=== PATIENT | female | born 1985 | race Caucasian/White ===

== ENCOUNTER 2020-05-05 05:10 | Inpatient (IN) | payer OTHER, SELFPAY ==
[2020-05-03 11:33] LABS: BASOPHILS % (AUTO) 0.6 % (0.0-2.0); EOSINOPHILS # (AUTO) 0.1 K/uL (0.0-0.4); EOSINOPHILS % (AUTO) 1.2 % (0.0-4.0); HEMATOCRIT 33.8 % (36-48); HEMOGLOBIN 11.6 g/dL (12.0-16.0); LYMPHOCYTES # (AUTO) 1.3 K/uL (1.0-5.5); LYMPHOCYTES % (AUTO) 16.5 % (20.5-51.5); MEAN CORPUSCULAR HEMOGLOBIN 31 pg (27-31); MEAN CORPUSCULAR HGB CONC 34 % (32-36); MEAN CORPUSCULAR VOLUME 91 fL (79.0-98.0); MONOCYTES # (AUTO) 0.6 K/uL (0.0-1.0); MONOCYTES % (AUTO) 7.8 % (1.7-9.3); NEUTROPHILS # (AUTO) 5.9 K/uL (1.8-7.7); NEUTROPHILS % (AUTO) 73.9 % (40.0-70.0); PLATELET COUNT (AUTO) 228 K/uL (130-430); RED BLOOD CELL COUNT(AUTO) 3.73 MIL/uL (4.2-6.2); RED CELL DISTRIBUTION WIDTH 14.6 % (9.0-15.0)
[2020-05-03 11:35] LABS: BILIRUBIN,URINE NEGATIVE (NEGATIVE); BLOOD, URINE NEGATIVE (NEGATIVE); CLARITY/URINE SL CLOUDY (CLEAR); COLOR,URINE YELLOW (YELLOW); GLUCOSE,URINE NEGATIVE (NEGATIVE); KETONES,URINE NEGATIVE (NEGATIVE); LEUKOCYTE ESTERASE ,URINE 1+ (NEGATIVE); NITRITE, URINE NEGATIVE (NEGATIVE); PROTEIN URINE NEGATIVE (NEGATIVE); UROBILINOGEN,URINE 0.2 (0.2-1.0)
[2020-05-03 11:54] LABS: BACTERIA,URINE FEW /HPF (None Seen); RBC,URINE 0-3 /HPF (0-3)
[~2020-05-05] VITALS: Ht 157.5 cm; Wt 77.1 kg
[2020-05-05 05:27] VITALS: BP_SYST 115
[2020-05-05] MEDS ORDERED: LR 1,000 ML IV SCH ×2 (05:30→09:45)
[2020-05-05] MEDS ORDERED: CEFAZOLIN 2 GM IVPB PREMIX 50 ML IV ONE (05:30)
[2020-05-05] MEDS ORDERED: CLINDAMYCIN 900 mg/50mL D5W 50 ML IV ONE (07:15)
[2020-05-05] MEDS ORDERED: NALOXONE HCL 0.4 MG/ML AMP (NARCAN) IVP PRN ×3 (08:45→09:45)
[2020-05-05] MEDS ORDERED: DIPHENHYDRAMINE INJ 50 MG/ML VIAL IVP PRN (08:45)
[2020-05-05] MEDS ORDERED: KETOROLAC TROMETHAMINE 60 MG/2 ML VIAL IM PRN (08:45)
[2020-05-05] MEDS ORDERED: ONDANSETRON HCL 4 MG/2 ML VIAL IVP PRN (08:45)
[2020-05-05 09:05] VITALS: BP_SYST 122
[2020-05-05] MEDS ORDERED: DIPH-TET-PERTUS Vaccine 0.5 ML VIAL (ADACEL) I.M. PRN (09:45)
[2020-05-05] MEDS ORDERED: TEMAZEPAM 15 MG CAPSULE PO PRN (09:45)
[2020-05-05] MEDS ORDERED: MEASLES,MUMPS&RUBELLA VACC/PF 12500 UNIT/0.5 ML VIAL SUBQ PRN (09:45)
[2020-05-05] MEDS ORDERED: SENNOSIDES/DOCUSATE SODIUM 1 TAB TABLET(SENOKOT-S) PO PRN (09:45)
[2020-05-05] MEDS ORDERED: OXYTOCIN/0.9 % SODIUM CHLORIDE 1,000 ML IV SCH (09:45)
[2020-05-05] MEDS ORDERED: ANUSOL 1 EA SUPP.RECT (PREPARATION H) RC PRN (09:45)
[2020-05-05] MEDS ORDERED: HYDROcodone/ACETAMIN 5-325 MG TAB (NORCO/ VICODIN) PO PRN (09:45)
[2020-05-05] MEDS ORDERED: LANOLIN 7 GM OINT. TP PRN (09:45)
[2020-05-05] MEDS ORDERED: RHO(D) IMMUNE GLOBULIN/MALTOSE 1500 UNITS/1.3 ML (WINHRO) IM PRN (09:45)
[2020-05-05] MEDS ORDERED: OXYTOCIN/0.9 % SODIUM CHLORIDE 1,000 ML IV ONE (10:10)
[2020-05-05] MEDS ORDERED: METHYLERGONOVINE MALEATE 0.2 MG/ML AMP IM ONE (10:45)
[2020-05-05] MEDS ORDERED: METHYLERGONOVINE MALEATE 0.2 MG/ML AMP ONE ×2 (10:56→12:23)
[2020-05-05 12:19] LABS: BASOPHILS # (AUTO) 0.1 K/uL (0.0-0.2); BASOPHILS % (AUTO) 0.8 % (0.0-2.0); EOSINOPHILS % (AUTO) 0.2 % (0.0-4.0); HEMOGLOBIN 9.2 g/dL (12.0-16.0); LYMPHOCYTES # (AUTO) 1.4 K/uL (1.0-5.5); LYMPHOCYTES % (AUTO) 9.2 % (20.5-51.5); MEAN CORPUSCULAR HEMOGLOBIN 31 pg (27-31); MEAN CORPUSCULAR HGB CONC 34 % (32-36); MEAN CORPUSCULAR VOLUME 91 fL (79.0-98.0); MONOCYTES # (AUTO) 0.9 K/uL (0.0-1.0); MONOCYTES % (AUTO) 5.7 % (1.7-9.3); NEUTROPHILS # (AUTO) 12.8 K/uL (1.8-7.7); NEUTROPHILS % (AUTO) 84.1 % (40.0-70.0); PLATELET COUNT (AUTO) 246 K/uL (130-430); RED BLOOD CELL COUNT(AUTO) 2.97 MIL/uL (4.2-6.2); RED CELL DISTRIBUTION WIDTH 14.7 % (9.0-15.0); WHITE BLOOD COUNT (AUTO) 15.2 K/uL (4.8-10.8)
[2020-05-05] MEDS ORDERED: OXYTOCIN 10 UNIT/ML VIAL ONE (12:23)
[2020-05-05] MEDS ORDERED: MISOPROSTOL 25 MCG (0.025 MG) *QUARTER TABLET VG ONE (12:48)
[2020-05-05] MEDS ORDERED: HYDROmorphone 2 MG/ML VIAL IVP STA (12:54)
[2020-05-05] MEDS ORDERED: MISOPROSTOL 100 MCG TABLET (CYTOTEC) RC SCH (13:00)
[2020-05-05] MEDS ORDERED: NACL 0.9% IV ONE (13:30)
[2020-05-05] MEDS ORDERED: METHYLERGONOVINE MALEATE IV ONE (13:30)
[2020-05-05] MEDS ORDERED: OXYTOCIN IV ONE (13:30)
[2020-05-05] MEDS ORDERED: METHYLERGONOVINE MALEATE 0.2 MG TABLET PO SCH (17:00)
[2020-05-05] MEDS: NACL 0.9% IV SCH ×2 (17:06→23:34)
[2020-05-05] MEDS: METHYLERGONOVINE MALEATE IV SCH ×2 (17:06→23:34)
[2020-05-05] MEDS: OXYTOCIN IV SCH ×2 (17:06→23:34)
[2020-05-05] MEDS ORDERED: KETOROLAC TROMETHAMINE 30 MG VIAL IVP SCH (18:00)
[2020-05-05] MEDS: CEFAZOLIN 1 GM IVPB PREMIX 50 ML IV SCH ×2 (18:07→23:38)
[2020-05-05 19:03] LABS: BASOPHILS % (AUTO) 0.1 % (0.0-2.0); LYMPHOCYTES # (AUTO) 1.4 K/uL (1.0-5.5); LYMPHOCYTES % (AUTO) 6.6 % (20.5-51.5); MEAN CORPUSCULAR HEMOGLOBIN 30 pg (27-31); MEAN CORPUSCULAR HGB CONC 32 % (32-36); MEAN CORPUSCULAR VOLUME 93 fL (79.0-98.0); MONOCYTES # (AUTO) 0.8 K/uL (0.0-1.0); MONOCYTES % (AUTO) 3.6 % (1.7-9.3); NEUTROPHILS # (AUTO) 19.3 K/uL (1.8-7.7); NEUTROPHILS % (AUTO) 89.7 % (40.0-70.0); PLATELET COUNT (AUTO) 237 K/uL (130-430); RED CELL DISTRIBUTION WIDTH 14.5 % (9.0-15.0); WHITE BLOOD COUNT (AUTO) 21.5 K/uL (4.8-10.8)
[2020-05-05 19:17] LABS: HEMATOCRIT 21.4 % (36-48); HEMOGLOBIN 6.9 g/dL (12.0-16.0)
[2020-05-05] MEDS ORDERED: HYDROmorphone 2 MG/ML VIAL IVP PRN (19:45)
[2020-05-05] MEDS ORDERED: HYDROmorphone 1 MG INJ. 1 MG/ML AMPUL IVP PRN (19:45)
[2020-05-05] MEDS ORDERED: COMMUNICATION ORDER XX ONE ×2 (19:45)
[2020-05-05] MEDS ORDERED: SOD FERRIC GLUC COMPLEX/SUC 125 MG in NS 100 ML IV SCH (20:00)
[2020-05-05] MEDS ORDERED: EPOETIN ALFA 4,000 UNITS/ML VIAL SUBCUT ONE (20:00)
[2020-05-05] MEDS: SIMETHICONE 80 MG TAB.CHEW PO PRN (23:34)
[2020-05-06] MEDS: SIMETHICONE 80 MG TAB.CHEW PO PRN ×3 (05:49→18:52)
[2020-05-06] MEDS: CEFAZOLIN 1 GM IVPB PREMIX 50 ML IV SCH (05:49)
[2020-05-06] MEDS: OXYCODONE/ACETAMINOPHEN 5-325 TABLET PO PRN (06:07)
[2020-05-06] MEDS ORDERED: METHYLERGONOVINE MALEATE IV SCH (06:15)
[2020-05-06] MEDS ORDERED: NACL 0.9% IV SCH (06:15)
[2020-05-06] MEDS ORDERED: OXYTOCIN IV SCH (06:15)
[2020-05-06 06:39] LABS: BASOPHILS # (AUTO) 0.1 K/uL (0.0-0.2); BASOPHILS % (AUTO) 0.8 % (0.0-2.0); EOSINOPHILS # (AUTO) 0.4 K/uL (0.0-0.4); EOSINOPHILS % (AUTO) 3.2 % (0.0-4.0); LYMPHOCYTES # (AUTO) 1.7 K/uL (1.0-5.5); LYMPHOCYTES % (AUTO) 12.4 % (20.5-51.5); MEAN CORPUSCULAR HEMOGLOBIN 31 pg (27-31); MEAN CORPUSCULAR HGB CONC 36 % (32-36); MEAN CORPUSCULAR VOLUME 88 fL (79.0-98.0); MONOCYTES % (AUTO) 7.7 % (1.7-9.3); NEUTROPHILS # (AUTO) 10.3 K/uL (1.8-7.7); NEUTROPHILS % (AUTO) 75.9 % (40.0-70.0); PLATELET COUNT (AUTO) 221 K/uL (130-430); RED BLOOD CELL COUNT(AUTO) 2.42 MIL/uL (4.2-6.2); RED CELL DISTRIBUTION WIDTH 14.9 % (9.0-15.0)
[2020-05-06 06:56] LABS: WHITE BLOOD COUNT (AUTO) 13.6 K/uL (4.8-10.8)
[2020-05-06 07:01] LABS: HEMATOCRIT 21.3 % (36-48); HEMOGLOBIN 7.6 g/dL (12.0-16.0)
[2020-05-06] MEDS: OXYCODONE/ACETAMINOPHEN *10*mg/325 mg TABLET PO PRN ×4 (09:22→21:29)
[2020-05-06] MEDS ORDERED: SOD FERRIC GLUC COMPLEX/SUC 125 MG in NS 100 ML IV SCH (12:00)
[2020-05-06] MEDS ORDERED: IBUPROFEN 600 MG TABLET PO SCH (12:00)
[2020-05-06] MEDS: EPOETIN ALFA 4,000 UNITS/ML VIAL SUBCUT SCH (12:12)
[2020-05-06] MEDS: DOCUSATE SODIUM 100 MG CAPSULE PO PRN ×2 (13:06→21:29)
[2020-05-06] MEDS ORDERED: EPOETIN ALFA 4,000 UNITS/ML VIAL SUBCUT SCH (17:00)
[2020-05-07] MEDS ORDERED: SOD FERRIC GLUC COMPLEX/SUC 125 MG in NS 100 ML IV SCH (01:00)
[2020-05-07] MEDS ORDERED: EPOETIN ALFA 4,000 UNITS/ML VIAL SUBCUT SCH (01:00)
[2020-05-07] MEDS: OXYCODONE/ACETAMINOPHEN *10*mg/325 mg TABLET PO PRN ×5 (01:48→19:01)
[2020-05-07] MEDS: SIMETHICONE 80 MG TAB.CHEW PO PRN ×3 (05:56→14:51)
[2020-05-07 07:41] LABS: BASOPHILS % (AUTO) 0.2 % (0.0-2.0); EOSINOPHILS # (AUTO) 0.3 K/uL (0.0-0.4); EOSINOPHILS % (AUTO) 2.6 % (0.0-4.0); HEMATOCRIT 22.3 % (36-48); HEMOGLOBIN 7.6 g/dL (12.0-16.0); LYMPHOCYTES # (AUTO) 1.4 K/uL (1.0-5.5); LYMPHOCYTES % (AUTO) 11.5 % (20.5-51.5); MEAN CORPUSCULAR HEMOGLOBIN 30 pg (27-31); MEAN CORPUSCULAR HGB CONC 34 % (32-36); MEAN CORPUSCULAR VOLUME 89 fL (79.0-98.0); MONOCYTES # (AUTO) 0.8 K/uL (0.0-1.0); MONOCYTES % (AUTO) 6.4 % (1.7-9.3); NEUTROPHILS # (AUTO) 9.7 K/uL (1.8-7.7); NEUTROPHILS % (AUTO) 79.3 % (40.0-70.0); PLATELET COUNT (AUTO) 219 K/uL (130-430); RED BLOOD CELL COUNT(AUTO) 2.51 MIL/uL (4.2-6.2); RED CELL DISTRIBUTION WIDTH 15.3 % (9.0-15.0); WHITE BLOOD COUNT (AUTO) 12.2 K/uL (4.8-10.8)
[2020-05-07] MEDS: DOCUSATE SODIUM 100 MG CAPSULE PO PRN ×2 (10:43→23:18)
[2020-05-07] MEDS: BISACODYL 10 MG/SUPPOSITORY RC PRN (10:45)
[2020-05-07] MEDS: EPOETIN ALFA 4,000 UNITS/ML VIAL SUBCUT SCH (12:00)
[2020-05-07] MEDS: OXYCODONE/ACETAMINOPHEN 5-325 TABLET PO PRN (23:18)
[2020-05-08] MEDS: OXYCODONE/ACETAMINOPHEN 5-325 TABLET PO PRN (02:18)
[2020-05-08] MEDS: OXYCODONE/ACETAMINOPHEN *10*mg/325 mg TABLET PO PRN ×2 (05:23→09:33)
[2020-05-08] MEDS: DOCUSATE SODIUM 100 MG CAPSULE PO PRN (09:33)
[2020-05-08] MEDS: BISACODYL 10 MG/SUPPOSITORY RC PRN (09:33)
== END 2020-05-08 10:30 | disposition home or self-care (01) | DRG 787 ==
LOC: SPU 05:10
PROVIDERS: ADMIT Specialist; ATTEND Specialist
PROC: 30233N1 Transfusion of Nonautologous Red Blood Cells into Peripheral Vein, Percutaneous Approach (ICD-10-PCS; 2020-05-05)
PROC: 10D00Z1 Extraction of Products of Conception, Low, Open Approach (ICD-10-PCS; principal; 2020-05-06)
DX: O34.211 Maternal care for low transverse scar from previous cesarean delivery (principal); O72.1 Other immediate postpartum hemorrhage; O99.02 Anemia complicating childbirth; N85.2 Hypertrophy of uterus; O26.53 Maternal hypotension syndrome, third trimester; Z3A.39 39 weeks gestation of pregnancy; Z37.0 Single live birth; Z20.828 Contact with and (suspected) exposure to other viral communicable diseases
CPT/HCPCS: 36415; 81000-TC; 85025; 86886; 86900; 86901; 86920; 87086; J0690; J0885; J1170; J1200; J2210; J2590; J2916; J3490; J7030; J7050; J7120; P9021; U0003-CS